=== PATIENT | male | born 1990 | race Two or more races ===

== ENCOUNTER 2021-07-28 03:33 | Emergency (ER) | payer OTHER ==
[~2021-07-28] VITALS: Ht 175.3 cm; Wt 79.4 kg
[2021-07-28] MEDS ORDERED: BUTALB-ACETAMI1 EAC2 PO (08:04)
[2021-07-28] MEDS ORDERED: ULTRAM50 MG PO (08:04)
== END 2021-07-28 08:33 ==
LOC: ER 03:33
DX: G43.819 Other migraine, intractable, without status migrainosus (principal); Z88.0 Allergy status to penicillin; Z88.6 Allergy status to analgesic agent; Z91.018 Allergy to other foods

== ENCOUNTER 2022-08-17 21:41 | Emergency (ER) | payer OTHER ==
[~2022-08-17] VITALS: Ht 175.3 cm; Wt 79.4 kg
[~2022-08-17 21:41] MED LIST: BUTALB-ACETAMI1 EAC2 PO; ULTRAM50 MG PO
== END 2022-08-18 00:51 | disposition home or self-care (01) ==
LOC: ER 21:41
DX: F41.9 Anxiety disorder, unspecified (principal); Z88.6 Allergy status to analgesic agent; Z88.0 Allergy status to penicillin; Z91.013 Allergy to seafood

== ENCOUNTER 2024-03-17 02:21 | Emergency (ER) | payer OTHER ==
[~2024-03-17] VITALS: Ht 175.3 cm; Wt 89.4 kg
[2024-03-17 02:31] VITALS: BP 127/84; O2SAT 99
[2024-03-17] MEDS ORDERED: ORPHENADRINE CITRATE 30 MG/ML AMPUL IM STA (04:01)
[2024-03-17] MEDS ORDERED: TRIAMCINOLONE ACETONIDE 40 MG/ML VIAL IM STA (04:02)
[2024-03-17] MEDS ORDERED: DOLOGESIC-DF 51 EACH PO (05:22)
[2024-03-17] MEDS ORDERED: ZYNCOF 20-400120 ML PO (05:23)
== END 2024-03-17 05:27 ==
LOC: ER 02:24
DX: R07.89 Other chest pain (principal); Z88.6 Allergy status to analgesic agent; Z88.0 Allergy status to penicillin; Z91.013 Allergy to seafood

== ENCOUNTER → 2024-08-22 | Emergency (ER) | payer OTHER ==
[~2024-08-22] MED LIST changes: +DOLOGESIC-DF 51 EACH PO; +ZYNCOF 20-400120 ML PO
== END | disposition left against medical advice (07) ==
LOC: ER 02:37
DX: Z53.21 Procedure and treatment not carried out due to patient leaving prior to being seen by health care provider (principal)